=== PATIENT | male | born 1980 | race Caucasian/White ===

== ENCOUNTER 2016-10-05 18:58 | Emergency (ER) | payer MEDICAID ==
[2016-10-05 22:41] VITALS: BP 122/74
== END 2016-10-05 22:41 | disposition home or self-care (01) ==
LOC: ED 18:58
DX: S02.2XXA Fracture of nasal bones, initial encounter for closed fracture (principal); X58.XXXA Exposure to other specified factors, initial encounter; Y93.89 Activity, other specified; Y99.8 Other external cause status; Y92.89 Other specified places as the place of occurrence of the external cause